=== PATIENT | male | born 1950 | race Hispanic/Latino ===

== ENCOUNTER → 2018-10-02 | Day surgery (SDC) | payer MEDICARE ==
--- NOTE | 2018-09-30 12:10 | Diagnostic Imaging Report ---
EXAMINATION: PA and lateral views of the chest. COMPARISON: None CLINICAL HISTORY: Preoperative study for renal stone surgery DISCUSSION: Lungs are hypoinflated without airspace consolidation, pleural effusion, or pneumothorax. Heart size and pulmonary vasculature are within normal limits when accounting for degree of inspiratory effort. Tortuous thoracic aorta with atherosclerotic calcification. No acute osseous abnormality. IMPRESSION: Low lung volumes without acute cardiopulmonary abnormality. Signed by: Dr. Allen Miles M.D. on 09/30/2018 12:07 PM
[2018-09-30 12:13] LABS: BASOPHILS # (AUTO) 0.1 (0.0-0.1); BASOPHILS % 1.3 % (0.0-1.0); EOSINOPHILS # (AUTO) 0.1 (0.0-0.4); EOSINOPHILS % 2.3 % (0.0-6.0); HEMATOCRIT 45.3 % (38.2-49.6); HEMOGLOBIN 15.5 g/dL (14.0-18.0); LYMPHOCYTES # (AUTO) 1.5 (1.0-3.2); LYMPHOCYTES % 30.7 % (18.0-39.1); MEAN CORPUSCULAR HEMOGLOBIN 33.4 pg (28-32); MEAN CORPUSCULAR HGB CONC 34.2 g/dL (31-35); MEAN CORPUSCULAR VOLUME 97.6 fL (81-99); MONOCYTES # (AUTO) 0.4 (0.2-0.8); MONOCYTES % 7.4 % (4.4-11.3); NEUTROPHILS # (AUTO) 2.7 (2.1-6.9); NEUTROPHILS % 57.9 % (38.7-80.0); PLATELET COUNT 166 x10e3/uL (140-360); RED BLOOD COUNT 4.64 x10e6/uL (4.3-5.7); RED CELL DISTRIBUTION WIDTH 12.1 % (11.7-14.4)
[2018-09-30 12:28] LABS: ANION GAP 10.9 mmol/L (8-16); BLOOD UREA NITROGEN 20 mg/dL (7-26); BUN/CREATININE RATIO 21 (6-25); CALCIUM 9.6 mg/dL (8.4-10.2); CARBON DIOXIDE 30 mmol/L (22-29); CHLORIDE 104 mmol/L (98-107); CREATININE, SERUM 0.97 mg/dL (0.72-1.25); EST GLOMERULAR FILTRATION RATE > 60 ML/MIN (60-); GLUCOSE 112 mg/dL (74-118); POTASSIUM 4.9 mmol/L (3.5-5.1); SODIUM 140 mmol/L (136-145)
[~2018-10-02] MED LIST: CEFTRIAXONE SOD 1 GM/NS 50 ML 50 ML IV ONE; CITALOPRAM HBR20 MG PO; DEXAMETHASONE SOD PHOS INJ 4 MG/ML VIAL ONE; DILTIAZEM 24HR180 M1; FENTANYL CITRATE/PF 100MCG/2 ML INJ ONE; IOPAMIDOL 610MG/1ML 300 MG/ML VIAL IV ONE; LIDOCAINE HCL 2% LOCAL INJ 5 ML SDV VIAL INJ ONE; MIDAZOLAM HCL 2 MG/2 ML VIAL ONE; ONDANSETRON HCL INJ 2MG/ML 2ML 2 MG/ML VIAL ONE; POTASSIUM CITR10 MEQ PO; PRAVASTATIN SOD20 MG; PROPOFOL IV EMULSION 10 MG/ML 20 ML VIAL ONE; QUINAPRIL HCL20 MG PO; SEVOFLURANE INHAL SOLN 250 ML PEN BTL ONE
[2018-10-02 14:40] VITALS: BP 126/78
--- NOTE | 2018-10-02 18:56 | Operative Report ---
DATE OF PROCEDURE: 10/02/2018 SURGEON: Bishnu Betts MD PREOPERATIVE DIAGNOSES: 1. Right renal calculus. 2. Hematuria. POSTOPERATIVE DIAGNOSES: 1. Right renal calculus. 2. Hematuria. PROCEDURES: 1. Cystourethroscopy with left ureteral catheterization and left retrograde pyelogram (entirely separate procedure) for microscopic hematuria. 2. Cystourethroscopy with urethral calibration and dilation of stricture (entirely separate procedure) for urethral stricture disease. 3. Right-sided ureteroscopy with dilation of ureteral stricture (entirely separate procedure) for ureteral stricture disease. 4. Cystourethroscopy with insertion of the right indwelling ureteral stent (entirely separate procedure) for diagnosis of right hydronephrosis. 5. Supervision of fluoroscopy. 6. Interpretation of retrograde pyelography. ANESTHESIA: General. ESTIMATED BLOOD LOSS: Minimal. COMPLICATIONS: None. INDICATION FOR PROCEDURE: Mr. Hayes is a very pleasant 67-year-old male with a history of a right ureteral calculus that failed a trial of passage. He and I had a long discussion about alternatives, risks, and benefits including doing nothing, shock wave lithotripsy, ureteroscopy, percutaneous surgery, or open surgery. He voiced understanding of the options, alternatives, risks, and benefits and he elected to proceed. PROCEDURE IN DETAIL: After informed consent was obtained, the patient was taken to the operative suite, placed supine on the operating table, underwent general anesthesia by the Anesthesia Service. He was placed in the dorsal lithotomy position, sterilely prepped and draped in a standard fashion for cystoscopy. A 21-American cystoscope was inserted per urethra. Normal urethra was noted.Hernandez endoscopy revealed no tumors no stones. Left ureteral orifice was catheterized with a 5-American open-ended catheter. It was normal. On the right there was extreme tortuosity with the question of filling defect in the distal ureter. A guidewire was inserted. Ureter was dilated. The uteroscope was advanced through a very dense ureteral stricture, which required a larger than normal amount of pressure to even approach. Fearing avulsion of the ureter, at this point, I terminated the ureteroscopy. A ureteral stent was deployed with coil in the renal pelvis and coil in the bladder. The patient's bladder was drained. He was awakened from anesthesia and transported to the recovery room in excellent condition. Supervision of fluoroscopy, interpretation of retrograde pyelography: I was present for the entire procedure and I supervised the use of fluoroscopy as no radiologist was present . Attention was turned towards the left and right ureters, which were catheterized with a 5-American open-ended catheter. Retrograde pyelogram was performed Normal left collecting systems; on the right, distal ureteral calculus with proximal hydronephrosis. Stent in adequate position on the right side. MD HARJIT Villarreal/MODL /[id number] MTDD
--- OUTSIDE RECORDS SUMMARY | 2018-10-03 09:35 | XMS REPORT ---
Author Author [facility] Address Unknown Phone Unavailable Care Team Providers Care Still [employer]er [employer]ube Name Role Phone ELBERT EPPERSON Unavailable Unavailable Problems This patient has no known problems. Allergies, Adverse Reactions, Alerts This patient has no known allergies or adverse reactions. Medications This patient has no known medications. Results Test Description Test Time Test Comments Text Results Atomic Results Result Comments CHEST 2 VIEWS 2018-09-30 12:05:00 [place] [address] Patient Name: SERGEI ENCINAS MR #: [id number] : 1950 Age/Sex: 67/M Req #: [id number] Adm Physician: Ordered by: ELBERT EPPERSON MD Report #: [id number] Location: OR Room/Bed: Procedure: [id number] DX/CHEST 2 VIEWS Exam Date: 09/30/18 Exam Time: 1144 REPORT STATUS: Signed EXAMINATION: PA and lateral views of the chest. COMPAR SHANIQUE: None CLINICAL HISTORY: Preoperative study for renal stone surgery DISCUSSION: Lungs are hypoinflated without airspace consolidation, pleural effusion, or pneumothorax. Heart size and pulmonary vasculature are within normal limits when accounting for degree of inspiratory effort. Tortuous thoracic aorta with atherosclerotic calcification. No acute osseous abnormality. IMPRESSION: Low lung volumes without acute cardiopulmonary abnormality. Signed by: Dr. Maame Rojas M.D. on 09/30/2018 12:07 PM Dictated By: MAAME ROJAS MD 06 Transcribed By: ELOISE on 09/30/181206 COPY TO: ELBERT EPPERSON MD
== END | disposition home or self-care (01) ==
LOC: OR 12:29
PROVIDERS: ATTEND Urology
DX: N20.1 Calculus of ureter (principal); Z01.812 Encounter for preprocedural laboratory examination; R31.9 Hematuria, unspecified; N13.5 Crossing vessel and stricture of ureter without hydronephrosis; E11.9 Type 2 diabetes mellitus without complications; F41.9 Anxiety disorder, unspecified
CPT/HCPCS: 36415 ×2; 52281; 52332; 71046; 74420; 80048; 82948; 85025; 93005; C1758; J0696; J1100; J2001; J2250; J2405; J2704; Q9967; C2617

== ENCOUNTER → 2018-10-25 | Day surgery (SDC) | payer MEDICARE, OTHER ==
[2018-10-25 10:30] VITALS: BP 126/79
--- NOTE | 2018-10-25 18:16 | Operative Report ---
DATE OF PROCEDURE: 10/25/2018 SURGEON: Bishnu Betts MD PREOPERATIVE DIAGNOSES: 1. Indwelling right ureteral stent. 2. Right ureteral calculus. 3. Right hydronephrosis. POSTOPERATIVE DIAGNOSES: 1. Indwelling right ureteral stent. 2. Right ureteral calculus. 3. Right hydronephrosis. PROCEDURES: 1. Cystourethroscopy with complicated removal of a right indwelling ureteral stent (entirely separate procedure, complicated secondary to massive calculi). 2. Benign prostatic hypertrophy. 3. Right-sided ureteroscopy and laser lithotripsy (entirely separate procedure for right ureteral calculus). 4. Cystourethroscopy insertion of a right indwelling stent (entirely separate procedure for right hydronephrosis). 5. Supervision of fluoroscopy for ureteroscopic portion. 6. Supervision of fluoroscopy for stent removal portion. 7. Interpretation of retrograde pyelography. ANESTHESIA: General. ESTIMATED BLOOD LOSS: Minimal. COMPLICATIONS: None. INDICATIONS: Mr. Hayes is a very pleasant 68-year-old male with a history of prior stent placement and dense ureteral stricture. He and I had a long discussion regarding the alternatives, risks, and benefits including doing nothing, shock wave lithotripsy, ureteroscopy, percutaneous surgery or open surgery. He voiced understanding of the options, alternatives, the risks, and the benefits and he elected to proceed with ureteroscopy. PROCEDURE IN DETAIL: After informed consent was obtained, the patient was taken to operative suite, placed supine on the operating table. He underwent general anesthesia by the service. He was placed in dorsal lithotomy position and sterilely prepped and draped in standard fashion for cystoscopy. A 19.8-Bhutanese cystoscope inserted per urethra, this was inserted. There was trilobar prostatic hypertrophy with a moderate degree of difficulty secondary to trilobar prostatic hypertrophy. Stent was removed and a guidewire was inserted. The ureteral stent was deployed. Guidewire was seen coiling over renal pelvis. Attempt was made to insert the rigid ureteroscope secondary to prostate hypertrophy, this failed. A flexible second safety wire was introduced. Flexible ureteroscope was advanced to the level of the renal pelvis. The collecting systems mapped. The scope was slowly withdrawn until the mid ureteral calculus over 1 cm in diameter was seen. Utilizing a 274 micron laser fiber, the stone was broken into fragments smaller than 2 mm under fluoroscopy. At this time with no other stones seen, the scope was slowly withdrawn. A ureteral stent was deployed with a coil in the renal pelvis and a coil in bladder. The string was tied at the level of the meatus. The patient was awakened from anesthesia and transferred to recovery room in excellent condition. Supervision of fluoroscopy and interpretation of retrograde pyelography: I was present for the entire procedure and I supervised the use of fluoroscopy as no radiologist present. Attention was turned towards the right ureteral orfice, where retrograde pyelogram was performed revealing ureteral stone,interim removal of right ureteral calculus and right hydronephrosis Post op, stent exchange removal of stone. MD HARJIT Villarreal/MODL /[id number] MTDD
== END | disposition home or self-care (01) ==
LOC: OR 07:21
PROVIDERS: ATTEND Urology
DX: N20.1 Calculus of ureter (principal); N13.30 Unspecified hydronephrosis; N20.0 Calculus of kidney; Z46.6 Encounter for fitting and adjustment of urinary device; N40.1 Benign prostatic hyperplasia with lower urinary tract symptoms; N13.8 Other obstructive and reflux uropathy; R35.1 Nocturia; N28.1 Cyst of kidney, acquired; D41.00 Neoplasm of uncertain behavior of unspecified kidney; I10 Essential (primary) hypertension; E11.9 Type 2 diabetes mellitus without complications; F32.9 Major depressive disorder, single episode, unspecified; F41.9 Anxiety disorder, unspecified; Z88.6 Allergy status to analgesic agent
CPT/HCPCS: 52356; 74420; C2617; J0696; J1100; J2001; J2250; J2405; J2704; Q9967